=== PATIENT | female | born 1990 | race African-American/Black ===

== ENCOUNTER 2021-03-20 18:15 | Observation (INO) | payer MEDICAID ==
[~2021-03-20] VITALS: Ht 170.2 cm; Wt 84.8 kg
[2021-03-20 20:35] LABS: BASOPHILS % 0.4 % (0.0-2.0); EOSINOPHILS % 1.1 % (0.0-5.0); HEMATOCRIT. 33.8 % (36.0-48.0); HEMOGLOBIN. 11.8 g/dL (12.0-16.0); LYMPHOCYTES % 20.8 % (20.0-50.0); MEAN CORPUSCULAR HEMOGLOBIN 30.3 pg (28.0-32.0); MEAN CORPUSCULAR VOLUME 87.1 fL (81.0-99.0); MEAN PLATELET VOLUME 7.7 fl (7.4-10.4); MONOCYTES % 8.8 % (2.0-8.0); NEUTROPHILS % 68.9 % (40.0-76.0); PLATELET 268 x1000/uL (130-400); RED BLOOD CELL COUNT 3.88 mill/uL (4.2-5.4); RED CELL DISTRIBUTION WIDTH 13.5 % (11.6-14.6)
[2021-03-20 20:38] LABS: CLARITY URINE CLOUDY (CLEAR); COLOR URINE DARK YELLOW (YELLOW); KETONES URINE 1+ (NEGATIVE); LEUKOCYTE ESTERASE URINE TRACE (NEGATIVE); NITRITE URINE NEGATIVE (NEGATIVE); OCCULT BLOOD URINE TRACE (NEGATIVE); PH URINE 5.5 (4.5-8.0); PROTEIN URINE 3+ (NEGATIVE); SPECIFIC GRAVITY URINE 1.033 (1.005-1.030)
[2021-03-20 20:42] LABS: CHLORIDE 106 mEq/L (98-107)
[2021-03-20 20:56] LABS: D-DIMER 2.33 mg/L FEU (<0.50); PARTIAL THROMBOPLASTIN TIME 28.3 sec (23.4-31.0); PROTHROMBIN TIME 11.2 sec (9.6-11.0)
[2021-03-20] MEDS ORDERED: PNV1TABL76 PO (21:36)
[2021-03-20] MEDS ORDERED: ACETAMINOPHEN 500MG TABLET PO NR (21:45)
[2021-03-20] MEDS ORDERED: CEFAZOLIN 2,000 MG in DEXT 5% WATER 100 ML IV NR (22:00)
[2021-03-20] MEDS ORDERED: LACTATED RINGERS 1,000 ML IV ONE (22:00)
== END 2021-03-20 22:30 | disposition home or self-care (01) ==
LOC: 8 EST LDRP 18:15
PROVIDERS: ADMIT Specialist; ATTEND Specialist
DX: O13.9 Gestational [pregnancy-induced] hypertension without significant proteinuria, unspecified trimester (principal); O26.893 Other specified pregnancy related conditions, third trimester; R10.9 Unspecified abdominal pain; Z3A.36 36 weeks gestation of pregnancy
CPT/HCPCS: 36415; 59025; 80053; 81003; 84550; 85025; 85379; 85384; 85610; 85730; 96365; G0378; J0690; J7060; 96360; 96361; 99281

== ENCOUNTER 2023-09-08 12:43 | Emergency (ER) | payer OTHER ==
[~2023-09-08] VITALS: Ht 167.6 cm; Wt 77.0 kg
[~2023-09-08 12:43] MED LIST: MUPI1OIN4 TP; PNV1TABL76 PO
[2023-09-08 13:04] VITALS: TEMP 98.5; O2SAT 100
[2023-09-08] MEDS: HYDROCODONE/ACETAMINOPHEN 5/325MG TABLET PO ONE (14:17)
[2023-09-08] MEDS ORDERED: IBUP-2030 MT (15:37)
[2023-09-08 16:33] VITALS: BP 160/90; PULSE 71; RESP 18
== END 2023-09-08 16:34 | disposition home or self-care (01) ==
LOC: ER 12:43
DX: S62.356A Nondisplaced fracture of shaft of fifth metacarpal bone, right hand, initial encounter for closed fracture (principal); I10 Essential (primary) hypertension; W22.09XA Striking against other stationary object, initial encounter; Y93.89 Activity, other specified; Y92.89 Other specified places as the place of occurrence of the external cause; Y99.8 Other external cause status
CPT/HCPCS: 29125; 73130; 99283; A4565

== ENCOUNTER 2025-04-19 02:59 | Emergency (ER) | payer OTHER ==
[~2025-04-19] VITALS: Ht 170.2 cm; Wt 76.0 kg
[~2025-04-19 02:59] MED LIST changes: +IBUP-2030 MT
[2025-04-19 03:13] VITALS: O2SAT 99
[2025-04-19 04:15] VITALS: BP 149/95; PULSE 83; RESP 18; TEMP 37.1; O2SAT 99
[2025-04-19] MEDS: KETOROLAC 15MG/ML VIAL IM ONE (04:15)
[2025-04-19] MEDS ORDERED: ACET-2708 MT (04:39)
[2025-04-19] MEDS ORDERED: NAPR-1176 MT (04:39)
== END 2025-04-19 05:41 | disposition home or self-care (01) ==
LOC: ER 02:59
DX: K04.7 Periapical abscess without sinus (principal); I10 Essential (primary) hypertension; Z79.1 Long term (current) use of non-steroidal anti-inflammatories (NSAID)
CPT/HCPCS: 81025; 96372; 99283; J1885; Z7610